=== PATIENT | female | born 2000 | race Caucasian/White ===

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

== ENCOUNTER → 2020-12-19 | Outpatient (REF) | LOC: M LABSMTC 10:03 | PROVIDERS: ATTEND Pediatrics | DX: Z11.52 Encounter for screening for COVID-19 (principal) ==

== ENCOUNTER → 2021-05-09 | Outpatient (REF) | LOC: M EMP 08:49 | PROVIDERS: ATTEND Family Medicine | DX: Z20.822 Contact with and (suspected) exposure to COVID-19 (principal) ==

== ENCOUNTER → 2021-07-24 | Outpatient (REF) | LOC: M EMP 16:36 | PROVIDERS: ATTEND Family Medicine | DX: Z20.822 Contact with and (suspected) exposure to COVID-19 (principal) ==

== ENCOUNTER → 2021-07-26 | Outpatient (REF) | LOC: M LABSMTC 12:43 | PROVIDERS: ATTEND Family Medicine | DX: Z20.822 Contact with and (suspected) exposure to COVID-19 (principal) ==

== ENCOUNTER → 2021-07-30 | Outpatient (REF) | LOC: M LABSMTC 13:23 | PROVIDERS: ATTEND Family Medicine | DX: Z20.822 Contact with and (suspected) exposure to COVID-19 (principal) ==

== ENCOUNTER → 2021-08-07 | Outpatient (REF) | LOC: M EMP 08:07 | PROVIDERS: ATTEND Family Medicine | DX: Z20.822 Contact with and (suspected) exposure to COVID-19 (principal) ==

== ENCOUNTER 2021-08-22 08:51 | Emergency (ER) | payer MEDICAID, OTHER ==
[~2021-08-22] VITALS: Ht 152.4 cm; Wt 89.1 kg
[2021-08-22 09:34] LABS: BASO % 0.1 % (0.0-1.0); EOS % 0.4 % (0.0-3.0); HEMATOCRIT 40.3 % (36.0-47.0); HEMOGLOBIN 13.3 g/dl (12.0-15.5); LYMPH # 0.9 10^3/uL (1.5-5.0); LYMPH % 11.6 % (24.0-44.0); MEAN CORPUSCULAR HEMOGLOBIN 29.8 pg (27.0-33.0); MEAN CORPUSCULAR VOLUME 90.4 fl (80.0-96.0); MONO # 0.5 10^3/uL (0.0-0.8); MONO % 6.4 % (2.0-8.0); NEUTROPHILS # 6.2 10^3/uL (1.5-8.5); NEUTROPHILS % 81.1 % (36.0-66.0); PLATELET COUNT, AUTOMATED 176 10^3/uL (150-450); RED BLOOD COUNT 4.46 10^6/uL (4.00-5.40); WHITE BLOOD COUNT 7.7 10^3/uL (4.0-10.0)
[2021-08-22 10:01] LABS: ALBUMIN 3.6 GM/DL (3.2-5.2); ALT/SGPT 21 U/L (12-78); BILIRUBIN,DIRECT 0.2 MG/DL (0.0-0.2); BILIRUBIN,TOTAL 0.5 MG/DL (0.2-1.0); BLOOD UREA NITROGEN 12 MG/DL (7-18); CALCIUM LEVEL 8.9 MG/DL (8.5-10.1); CARBON DIOXIDE LEVEL 27 MEQ/L (21-32); CHLORIDE LEVEL 107 MEQ/L (98-107); CREATININE FOR GFR 0.73 MG/DL (0.55-1.30); GLOMERULAR FILTRATION RATE > 60.0 (>60); GLUCOSE, FASTING 103 MG/DL (70-100); LIPASE 51 U/L (73-393); POTASSIUM SERUM 3.8 MEQ/L (3.5-5.1); SODIUM LEVEL 140 MEQ/L (136-145); TOTAL PROTEIN 6.9 GM/DL (6.4-8.2)
[2021-08-22 10:17] LABS: HCG, SERUM QUALITATIVE NEGATIVE (NEGATIVE)
[2021-08-22] MEDS ORDERED: BACT400T PO (13:59)
[2021-08-22] MEDS ORDERED: ZOFR4TAB16 PO (13:59)
[2021-08-22] MEDS ORDERED: FLUC150T PO (13:59)
[2021-08-22] MEDS ORDERED: ONDANSETRON 4 MG ORAL DISINTEGRATING TAB PO ONE (14:05)
[2021-08-22] MEDS ORDERED: ACETAMINOPHEN 325 MG TAB PO ONE (14:05)
[2021-08-22 14:54] VITALS: BP 129/77
== END 2021-08-22 15:27 | disposition home or self-care (01) ==
LOC: M ED 08:51
DX: N39.0 Urinary tract infection, site not specified (principal); F12.10 Cannabis abuse, uncomplicated
CPT/HCPCS: 36415; 76775; 76830; 76856; 80048; 80076; 81001; 83690; 84703; 85025; 87088; 87186; 93976; 99284; Q0162

== ENCOUNTER → 2022-05-28 | Outpatient (REF) ==
[~2022-05-28] MED LIST: BACT400T PO; FLUC150T9 PO; ZOFR4TAB16 PO
== END ==
LOC: M EMP 07:54
PROVIDERS: ATTEND Family Medicine
DX: Z20.822 Contact with and (suspected) exposure to COVID-19 (principal)

== ENCOUNTER → 2022-12-20 | Outpatient (REF) | payer OTHER, MEDICAID | LOC: M LAB REF 12:13 | PROVIDERS: ATTEND Obstetrics & Gynecology | DX: N91.2 Amenorrhea, unspecified (principal) ==

== ENCOUNTER → 2022-12-30 | Outpatient (REF) | payer OTHER, MEDICAID ==
[~2022-12-30] MED LIST changes: +PRENTAB7 PO
[2022-12-30 13:31] LABS: HEMATOCRIT 42.2 % (36.0-47.0); MEAN CORPUSCULAR HEMOGLOBIN 30.4 pg (27.0-33.0); MEAN CORPUSCULAR HGB CONC 33.2 g/dl (32.0-36.5); MEAN CORPUSCULAR VOLUME 91.5 fl (80.0-96.0); PLATELET COUNT, AUTOMATED 226 10^3/uL (150-450); RED BLOOD COUNT 4.61 10^6/uL (4.00-5.40); WHITE BLOOD COUNT 6.1 10^3/uL (4.0-10.0)
[2022-12-30 13:48] LABS: HEPATITIS B SURFACE ANTIGEN NEGATIVE (NEGATIVE)
[2022-12-30 14:01] LABS: HIV 1&2 SCREEN NEGATIVE (NEGATIVE)
[2022-12-30 14:11] LABS: HCG, SERUM QUANTITATIVE 16395.9 MIU/ML (<4.2)
== END ==
LOC: M LAB REF 12:24
PROVIDERS: ATTEND Obstetrics & Gynecology
DX: O36.80X0 Pregnancy with inconclusive fetal viability, not applicable or unspecified (principal); Z32.01 Encounter for pregnancy test, result positive; Z3A.00 Weeks of gestation of pregnancy not specified

== ENCOUNTER → 2022-12-31 | Outpatient (CLI) | payer OTHER | LOC: M RAD 15:49 | PROVIDERS: ATTEND Obstetrics & Gynecology | DX: O36.80X0 Pregnancy with inconclusive fetal viability, not applicable or unspecified (principal); Z32.01 Encounter for pregnancy test, result positive ==

== ENCOUNTER 2023-01-02 21:44 | Emergency (ER) | payer OTHER ==
[~2023-01-02] VITALS: Ht 152.4 cm; Wt 79.9 kg
[~2023-01-02 21:44] MED LIST changes: -PRENTAB7 PO
[2023-01-02 21:45] VITALS: BP 123/79
[2023-01-02] MEDS ORDERED: PRENTAB7 PO (21:49)
[2023-01-02 22:31] LABS: BASO % 0.2 % (0.0-1.0); EOS # 0.1 10^3/uL (0.0-0.5); EOS % 1.2 % (0.0-3.0); HEMATOCRIT 39.7 % (36.0-47.0); HEMOGLOBIN 13.4 g/dl (12.0-15.5); LYMPH # 1.2 10^3/uL (1.5-5.0); LYMPH % 23.5 % (24.0-44.0); MEAN CORPUSCULAR HEMOGLOBIN 30.3 pg (27.0-33.0); MEAN CORPUSCULAR HGB CONC 33.8 g/dl (32.0-36.5); MEAN CORPUSCULAR VOLUME 89.8 fl (80.0-96.0); MONO # 0.5 10^3/uL (0.0-0.8); MONO % 9.7 % (2.0-8.0); NEUTROPHILS # 3.2 10^3/uL (1.5-8.5); NEUTROPHILS % 65.2 % (36.0-66.0); PLATELET COUNT, AUTOMATED 183 10^3/uL (150-450); RED BLOOD COUNT 4.42 10^6/uL (4.00-5.40)
[2023-01-02 23:04] LABS: BLOOD UREA NITROGEN 9 MG/DL (9-23); CALCIUM LEVEL 8.3 MG/DL (8.5-10.1); CARBON DIOXIDE LEVEL 24 MMOL/L (20-31); CHLORIDE LEVEL 106 MMOL/L (98-107); CREATININE FOR GFR 0.54 MG/DL (0.55-1.30); GLOMERULAR FILTRATION RATE > 60.0 (>60); GLUCOSE, FASTING 107 MG/DL (60-100); POTASSIUM SERUM 3.9 MMOL/L (3.5-5.1); SODIUM LEVEL 138 MMOL/L (136-145)
[2023-01-02 23:16] LABS: HCG, SERUM QUANTITATIVE 33215.6 MIU/ML (<4.2)
== END 2023-01-03 03:30 | disposition left against medical advice (07) ==
LOC: M ED 21:44
DX: Z53.21 Procedure and treatment not carried out due to patient leaving prior to being seen by health care provider (principal)

== ENCOUNTER → 2023-01-28 | Outpatient (REF) | payer OTHER, MEDICAID ==
[~2023-01-28] MED LIST changes: +PRENTAB7 PO
== END ==
LOC: M LAB REF 17:06
PROVIDERS: ATTEND Obstetrics & Gynecology
DX: O36.80X0 Pregnancy with inconclusive fetal viability, not applicable or unspecified (principal); Z32.01 Encounter for pregnancy test, result positive; Z3A.00 Weeks of gestation of pregnancy not specified

== ENCOUNTER → 2023-07-08 | Outpatient (CLI) | payer OTHER ==
[2023-07-08 14:02] LABS: HEMATOCRIT 34.2 % (36.0-47.0); HEMOGLOBIN 11.1 g/dl (12.0-15.5); MEAN CORPUSCULAR HEMOGLOBIN 27.8 pg (27.0-33.0); MEAN CORPUSCULAR HGB CONC 32.5 g/dl (32.0-36.5); MEAN CORPUSCULAR VOLUME 85.7 fl (80.0-96.0); PLATELET COUNT, AUTOMATED 183 10^3/uL (150-450); RED BLOOD COUNT 3.99 10^6/uL (4.00-5.40)
[2023-07-09 06:46] LABS: WHITE BLOOD COUNT 8.7 10^3/uL (4.0-10.0)
== END ==
LOC: M LAB 12:38
PROVIDERS: ATTEND Obstetrics & Gynecology
DX: Z34.82 Encounter for supervision of other normal pregnancy, second trimester (principal); Z3A.00 Weeks of gestation of pregnancy not specified

== ENCOUNTER 2023-07-15 21:55 | Outpatient (CLI) | payer OTHER ==
[~2023-07-15] VITALS: Ht 152.4 cm; Wt 105.4 kg
[2023-07-15 22:27] VITALS: BP 124/68
[2023-07-15] MEDS ORDERED: ACET325C5 PO (22:37)
[2023-07-15] MEDS ORDERED: HOME MED LIST COMPLETE! XX SCH (22:40)
[2023-07-15 23:19] LABS: TOTAL PROTEIN,RANDOM URINE 16.1 MG/DL (0.0-14.0)
[2023-07-15 23:23] LABS: LDH LACTATE DEHYDROGENASE 183 U/L (120-246)
[2023-07-15 23:24] LABS: ALT/SGPT 25 U/L (7.0-40); AST/SGOT 21 U/L (<34); BILIRUBIN,TOTAL 0.2 MG/DL (0.3-1.2); CREATININE FOR GFR 0.46 MG/DL (0.55-1.30); GLOMERULAR FILTRATION RATE > 60.0 (>60)
[2023-07-15 23:24] LABS: CREATININE,RANDOM URINE 103.2 MG/DL
[2023-07-15 23:26] LABS: URIC ACID 3.9 MG/DL (3.1-7.8)
[2023-07-15 23:36] LABS: HEMATOCRIT 31.4 % (36.0-47.0); HEMOGLOBIN 10.6 g/dl (12.0-15.5); MEAN CORPUSCULAR HEMOGLOBIN 28.6 pg (27.0-33.0); MEAN CORPUSCULAR HGB CONC 33.8 g/dl (32.0-36.5); MEAN CORPUSCULAR VOLUME 84.6 fl (80.0-96.0); PLATELET COUNT, AUTOMATED 218 10^3/uL (150-450); RED BLOOD COUNT 3.71 10^6/uL (4.00-5.40); WHITE BLOOD COUNT 9.8 10^3/uL (4.0-10.0)
== END 2023-07-15 23:55 | disposition home or self-care (01) ==
LOC: M LDO 21:55
PROVIDERS: ATTEND Specialist
DX: O26.893 Other specified pregnancy related conditions, third trimester (principal); R51.9 Headache, unspecified; Z3A.33 33 weeks gestation of pregnancy
CPT/HCPCS: 36415; 59025; 82247; 82570; 83615; 84156; 84450; 84460; 84550; 85027; G0463

== ENCOUNTER → 2023-07-18 | Outpatient (CLI) | payer OTHER ==
[~2023-07-18] MED LIST changes: +ACET325C5 PO
== END ==
LOC: M LAB 07:09
PROVIDERS: ATTEND Obstetrics & Gynecology
DX: O99.810 Abnormal glucose complicating pregnancy (principal); Z3A.00 Weeks of gestation of pregnancy not specified

== ENCOUNTER 2023-07-30 15:28 | Outpatient (CLI) | payer OTHER ==
[~2023-07-30] VITALS: Ht 152.4 cm; Wt 109.6 kg
[2023-07-30 15:46] VITALS: BP 129/91
[2023-07-30 16:02] VITALS: BP 128/80
[2023-07-30 16:17] VITALS: BP 115/58
[2023-07-30 16:32] VITALS: BP 117/64
[2023-07-30 16:40] LABS: TOTAL PROTEIN,RANDOM URINE 11.2 MG/DL (0.0-14.0)
[2023-07-30 16:45] LABS: CREATININE,RANDOM URINE 66.7 MG/DL
[2023-07-30 16:45] LABS: HEMATOCRIT 31.2 % (36.0-47.0); HEMOGLOBIN 10.1 g/dl (12.0-15.5); MEAN CORPUSCULAR HEMOGLOBIN 27.2 pg (27.0-33.0); MEAN CORPUSCULAR HGB CONC 32.4 g/dl (32.0-36.5); MEAN CORPUSCULAR VOLUME 83.9 fl (80.0-96.0); PLATELET COUNT, AUTOMATED 192 10^3/uL (150-450); RED BLOOD COUNT 3.72 10^6/uL (4.00-5.40)
[2023-07-30 17:07] LABS: URIC ACID 4.1 MG/DL (3.1-7.8)
[2023-07-30 17:09] LABS: LDH LACTATE DEHYDROGENASE 170 U/L (120-246)
[2023-07-30 17:11] LABS: ALT/SGPT 19 U/L (7.0-40); AST/SGOT 20 U/L (<34); BILIRUBIN,TOTAL 0.3 MG/DL (0.3-1.2); CREATININE FOR GFR 0.48 MG/DL (0.55-1.30); GLOMERULAR FILTRATION RATE > 60.0 (>60)
== END 2023-07-30 17:21 ==
LOC: M LDO 15:28
PROVIDERS: ATTEND Advanced Practice Midwife
DX: O26.893 Other specified pregnancy related conditions, third trimester (principal); R03.0 Elevated blood-pressure reading, without diagnosis of hypertension; Z3A.35 35 weeks gestation of pregnancy
CPT/HCPCS: 36415; 59025; 82247; 82570; 83615; 84156; 84450; 84460; 84550; 85027; G0463

== ENCOUNTER → 2023-07-30 | Outpatient (REF) | payer OTHER ==
[2023-07-30 17:46] LABS: ALBUMIN 2.2 G/DL (3.2-5.2); ALKALINE PHOSPHATASE 113 U/L (46-116); ALT/SGPT 23 U/L (7.0-40); AST/SGOT 18 U/L (<34); BILIRUBIN,DIRECT < 0.1 MG/DL (<0.4); BILIRUBIN,TOTAL 0.2 MG/DL (0.3-1.2); TOTAL PROTEIN 5.6 G/DL (5.7-8.2)
== END ==
LOC: M LAB REF 16:32
PROVIDERS: ATTEND Obstetrics & Gynecology
DX: Z34.83 Encounter for supervision of other normal pregnancy, third trimester (principal)

== ENCOUNTER → 2023-08-07 | Outpatient (CLI) | payer OTHER | LOC: M RAD 11:57 | PROVIDERS: ATTEND Obstetrics & Gynecology | DX: Z34.83 Encounter for supervision of other normal pregnancy, third trimester (principal); Z3A.37 37 weeks gestation of pregnancy ==

== ENCOUNTER 2023-08-26 14:57 | Inpatient (IN) | payer OTHER ==
[~2023-08-26] VITALS: Ht 152.4 cm; Wt 114.6 kg
[2023-08-26] MEDS ORDERED: HOME MED LIST COMPLETE! XX SCH (15:35)
[2023-08-26] MEDS ORDERED: OXYTOCIN DRIP 30 UNITS in IV 1 EA IV PRN (16:10)
[2023-08-26] MEDS ORDERED: LIDOCAINE 1% MDV 20ML VIAL INFIL PRN (16:10)
[2023-08-26] MEDS ORDERED: NIFEdipine 10 MG CAP PO ONE (16:25)
[2023-08-26 16:34] LABS: HEMATOCRIT 31.6 % (36.0-47.0); HEMOGLOBIN 9.8 g/dl (12.0-15.5); MEAN CORPUSCULAR HEMOGLOBIN 25.5 pg (27.0-33.0); MEAN CORPUSCULAR VOLUME 82.3 fl (80.0-96.0); PLATELET COUNT, AUTOMATED 238 10^3/uL (150-450); RED BLOOD COUNT 3.84 10^6/uL (4.00-5.40)
[2023-08-26 16:41] VITALS: BP 180/113
[2023-08-26 17:02] LABS: TOTAL PROTEIN,RANDOM URINE 18.7 MG/DL (0.0-14.0)
[2023-08-26] MEDS: LR 1,000 ML IV SCH (17:04)
[2023-08-26] MEDS: miSOPROStol 50MCG 1/2 TABLET SL SCH ×2 (17:04→21:17)
[2023-08-26 17:05] LABS: URIC ACID 3.8 MG/DL (3.1-7.8)
[2023-08-26 17:07] LABS: LDH LACTATE DEHYDROGENASE 184 U/L (120-246)
[2023-08-26 17:07] LABS: CREATININE,RANDOM URINE 64.9 MG/DL
[2023-08-26 17:08] LABS: ALT/SGPT 18 U/L (7.0-40); AST/SGOT 15 U/L (<34); BILIRUBIN,TOTAL 0.2 MG/DL (0.3-1.2); CREATININE FOR GFR 0.52 MG/DL (0.55-1.30); GLOMERULAR FILTRATION RATE > 60.0 (>60)
[2023-08-26 19:07] VITALS: BP 181/107
[2023-08-26] MEDS ORDERED: LABETALOL 100MG/20ML VIAL IV STA (19:16)
[2023-08-26 19:26] VITALS: BP 135/74
[2023-08-26 20:49] VITALS: BP 140/92
[2023-08-26 21:18] VITALS: BP 128/63
[2023-08-27] VITALS (43 sets, daily range): BP systolic 103–188; BP diastolic 56–109; O2SAT 96–98
[2023-08-27] MEDS: LR 1,000 ML IV SCH ×2 (01:21→21:13)
[2023-08-27] MEDS: miSOPROStol 50MCG 1/2 TABLET SL SCH ×2 (01:21→05:25)
[2023-08-27] MEDS ORDERED: OXYTOCIN DRIP 30 UNITS in IV 1 EA IV SCH (10:10)
[2023-08-27] MEDS ORDERED: HOME MED LIST COMPLETE! XX SCH (11:25)
[2023-08-27] MEDS ORDERED: LACTATED RINGER'S 1000 ML IV ONE (17:20)
[2023-08-27] MEDS ORDERED: ePHEDrine SULFATE 25 MG/5 ML(5MG/ML) SYRINGE IVP PRN (17:50)
[2023-08-27] MEDS ORDERED: EPIDURAL/PCA KEYS XX PRN (17:50)
[2023-08-27] MEDS ORDERED: diphenhydrAMINE 50MG/ML VIAL IV PRN (17:50)
[2023-08-27] MEDS ORDERED: LR 500 ML IV PRN (17:50)
[2023-08-27] MEDS ORDERED: ONDANSETRON 4MG 2ML VIAL IV PRN (17:50)
[2023-08-27] MEDS ORDERED: NALOXONE INJ 0.4MG/1ML VIAL IV PRN (17:50)
[2023-08-27] MEDS: FENTANYL/ROPIVACAINE/NACL BAG 100 ML EPIDURAL SCH (18:17)
[2023-08-28] VITALS (19 sets, daily range): BP systolic 128–158; BP diastolic 56–82; TEMP 98.9; O2SAT 95–98
[2023-08-28] MEDS: FENTANYL/ROPIVACAINE/NACL BAG 100 ML EPIDURAL SCH (01:52)
[2023-08-28] MEDS ORDERED: LIDOCAINE 1% MDV 20ML VIAL INFIL PRN (04:40)
[2023-08-28] MEDS ORDERED: OXYTOCIN INJ 10UNITS/ML 1ML VIAL IM PRN (04:40)
[2023-08-28] MEDS ORDERED: ceFAZolin SOD 2 GM in IV 1 EA IV ONE (04:40)
[2023-08-28] MEDS ORDERED: BICITRA 30ML SOLN UDC PO ONE (04:40)
[2023-08-28] MEDS ORDERED: OXYTOCIN DRIP 30 UNITS in IV 1 EA IV PRN ×6 (04:40)
[2023-08-28] MEDS ORDERED: AZITHROMYCIN INJ 500 MG, VIAL MATE ADAPTER 1 EACH in NS 250 ML IV ONE (04:40)
[2023-08-28] MEDS ORDERED: CARBOPROST TROMETHAMINE 250 MCG/ML AMP IM PRN (04:40)
[2023-08-28] MEDS ORDERED: OXYTOCIN INJ 10UNITS/ML 1ML VIAL IV PRN (04:40)
[2023-08-28] MEDS ORDERED: TRANEXAMIC ACID INJection 1,000 MG in NS 100 ML IV PRN (04:40)
[2023-08-28] MEDS ORDERED: METHYLERGONOVINE MALEATE 0.2MG/ML 1ML VIAL IM PRN (04:40)
[2023-08-28] MEDS ORDERED: SIMETHICONE 80MG CHEW TAB PO PRN (05:35)
[2023-08-28] MEDS ORDERED: RHOGAM 300MCG (1500IU) INJ IM SCH (05:35)
[2023-08-28] MEDS ORDERED: MOM 30ML SUSPENSION UDC PO PRN (05:35)
[2023-08-28] MEDS: LR 1,000 ML IV SCH ×3 (05:35→19:59)
[2023-08-28] MEDS ORDERED: OXYTOCIN DRIP 30 UNITS in IV 1 EA IV SCH (05:35)
[2023-08-28] MEDS ORDERED: ONDANSETRON 4MG 2ML VIAL IV PRN ×2 (05:35→07:20)
[2023-08-28] MEDS ORDERED: PERCOCET 5MG/325MG TAB PO PRN (05:35)
[2023-08-28] MEDS ORDERED: ONDANSETRON 4MG 2ML VIAL As Ordered ONE (05:39)
[2023-08-28] MEDS ORDERED: ACETAMINOPHEN 1000MG 100ML IV BAG As Ordered ONE (05:39)
[2023-08-28] MEDS ORDERED: KETOROLAC 60MG 2ML VIAL As Ordered ONE (05:39)
[2023-08-28] MEDS ORDERED: LIDOCAINE 2% W/EPINEPHRINE 20ML VIAL **PRES FREE As Ordered ONE (05:39)
[2023-08-28] MEDS ORDERED: MORPHINE PRES-FREE INJ 10 MG/10 ML VIAL As Ordered ONE (05:39)
[2023-08-28] MEDS ORDERED: ePHEDrine SULFATE 25 MG/5 ML(5MG/ML) SYRINGE As Ordered ONE (05:49)
[2023-08-28] MEDS ORDERED: OXYTOCIN 30UNITS IN 0.9% NaCl 500ML IV BAG As Ordered ONE ×2 (05:49→07:46)
[2023-08-28 06:13] LABS: CORD GAS HCO3 V 22.7 MMOL/L; CORD GAS O2 SAT V 62.8 %; CORD GAS PCO2 V 57.5 mmHg; CORD GAS PH V 7.215 UNITS; CORD GAS PO2 V 30.3 mmHg; CORD GAS SBC V 18.8 MMOL/L; CORD GAS TCO2 V 24.5 MMOL/L
[2023-08-28 06:14] LABS: CORD GAS ABE A -6.8; CORD GAS HCO3 A 18.6 MMOL/L; CORD GAS O2 SAT A 66.7 %; CORD GAS PCO2 A 37.7 mmHg; CORD GAS PH A 7.312 UNITS; CORD GAS PO2 A 27.9 mmHg; CORD GAS SBC A 18.3 MMOL/L; CORD GAS TCO2 A 19.8 MMOL/L
[2023-08-28] MEDS ORDERED: METOCLOPRAMIDE INJ 10MG/2ML VIAL IV PRN (07:20)
[2023-08-28] MEDS ORDERED: **NOTE PATIENT COMMENT** MISC XX SCH (07:20)
[2023-08-28] MEDS ORDERED: fentaNYL 100 MCG/2 ML INJECTION IV PRN (07:20)
[2023-08-28] MEDS ORDERED: NALOXONE INJ 0.4MG/1ML VIAL IV PRN ×2 (07:20)
[2023-08-28] MEDS ORDERED: HYDROMORPHONE HCL 0.5 MG/ 0.5 ML SYRINGE IV PRN (07:20)
[2023-08-28] MEDS ORDERED: oxyCODONE 5MG TAB PO PRN (07:20)
[2023-08-28] MEDS ORDERED: diphenhydrAMINE 50MG/ML VIAL IV PRN (07:20)
[2023-08-28] MEDS: SLF 3 ML SYR IV SCH ×3 (07:20→23:20)
[2023-08-28] MEDS ORDERED: oxyCODONE 5MG TAB As Ordered ONE (07:52)
[2023-08-28] MEDS: FERROUS SULFATE 325MG TAB PO SCH (08:47)
[2023-08-28] MEDS: DOCUSATE SODIUM 100MG CAPSULE PO SCH ×2 (08:47→19:58)
[2023-08-28] MEDS: PRENATAL VITAMINS CHEWABLE TABLET PO SCH (08:47)
[2023-08-28] MEDS: KETOROLAC 30 MG/ML 1ML VIAL IV SCH ×3 (12:13→23:06)
[2023-08-28] MEDS ORDERED: LR 1,000 ML IV ONE (16:35)
[2023-08-29] VITALS (7 sets, daily range): BP systolic 121–146; BP diastolic 66–84; O2SAT 97–99
[2023-08-29 06:39] LABS: HEMATOCRIT 24.3 % (36.0-47.0); HEMOGLOBIN 7.5 g/dl (12.0-15.5); MEAN CORPUSCULAR HEMOGLOBIN 25.3 pg (27.0-33.0); MEAN CORPUSCULAR HGB CONC 30.9 g/dl (32.0-36.5); MEAN CORPUSCULAR VOLUME 82.1 fl (80.0-96.0); PLATELET COUNT, AUTOMATED 206 10^3/uL (150-450); RED BLOOD COUNT 2.96 10^6/uL (4.00-5.40); WHITE BLOOD COUNT 10.5 10^3/uL (4.0-10.0)
[2023-08-29] MEDS: PRENATAL VITAMINS CHEWABLE TABLET PO SCH (08:04)
[2023-08-29] MEDS: DOCUSATE SODIUM 100MG CAPSULE PO SCH ×2 (08:05→20:52)
[2023-08-29] MEDS: FERROUS SULFATE 325MG TAB PO SCH (08:05)
[2023-08-29] MEDS: IBUPROFEN 800 MG TAB PO SCH ×3 (08:05→23:51)
[2023-08-29] MEDS: PERCOCET 5MG/325MG TAB PO PRN (16:00)
[2023-08-30] MEDS ORDERED: IBUP80TA PO (03:27)
[2023-08-30] MEDS ORDERED: PERCOCET PO (03:27)
[2023-08-30] MEDS: PERCOCET 5MG/325MG TAB PO PRN (05:30)
[2023-08-30 06:00] VITALS: BP 126/68; O2SAT 98
[2023-08-30 07:30] VITALS: O2SAT 98
[2023-08-30] MEDS: PRENATAL VITAMINS CHEWABLE TABLET PO SCH (08:12)
[2023-08-30] MEDS: FERROUS SULFATE 325MG TAB PO SCH (08:12)
[2023-08-30] MEDS: DOCUSATE SODIUM 100MG CAPSULE PO SCH (08:12)
[2023-08-30] MEDS: IBUPROFEN 800 MG TAB PO SCH (08:13)
[2023-08-30] MEDS ORDERED: MEASLES,MUMPS,RUBELLA VACCINE INJ (MMR-II) SC.IMMUN ONE (09:00)
== END 2023-08-30 12:20 | disposition home or self-care (01) | DRG 540 ==
LOC: M LDO 14:57 → M LDI 15:48 → M OBS 08-28 08:10
PROVIDERS: ADMIT Specialist; ATTEND Specialist
PROC: 3E033VJ Introduction of Other Hormone into Peripheral Vein, Percutaneous Approach (ICD-10-PCS; 2023-08-27)
PROC: 10D00Z1 Extraction of Products of Conception, Low, Open Approach (ICD-10-PCS; principal; 2023-08-28 06:00)
DX: O14.14 Severe pre-eclampsia complicating childbirth (principal); O32.4XX0 Maternal care for high head at term, not applicable or unspecified; Z37.0 Single live birth; Z3A.39 39 weeks gestation of pregnancy; O76 Abnormality in fetal heart rate and rhythm complicating labor and delivery; O36.60X0 Maternal care for excessive fetal growth, unspecified trimester, not applicable or unspecified

== ENCOUNTER → 2024-02-12 | Outpatient (REF) | payer OTHER, MEDICAID ==
[~2024-02-12] MED LIST changes: +IBUP80TA PO; +PERCOCET PO
== END ==
LOC: M LAB REF 16:50
PROVIDERS: ATTEND Advanced Practice Midwife
DX: N91.2 Amenorrhea, unspecified (principal)

== ENCOUNTER → 2024-12-15 | Outpatient (CLI) | payer MEDICAID | LOC: M OUTALCOH 08:02 | PROVIDERS: ATTEND Psychiatry & Neurology Psychiatry | DX: Z03.89 Encounter for observation for other suspected diseases and conditions ruled out (principal); Z72.0 Tobacco use ==